=== PATIENT | female | born 1965 | race Caucasian/White ===

== ENCOUNTER 2016-08-05 15:14 | Emergency (ER) | payer MEDICAID ==
[~2016-08-05] VITALS: Ht 165.1 cm; Wt 147.0 kg
[~2016-08-05 15:14] MED LIST: NAPR500T3 PO
[2016-08-05] MEDS ORDERED: ALBUTEROL SULFATE 2.5 MG/3 ML NPPB ONE (15:30)
[2016-08-05] MEDS ORDERED: SODIUM CHLORIDE FLUSH 10ML SYR IVF ONE (15:30)
[2016-08-05] MEDS ORDERED: ALBUTEROL SULFATE 2.5 MG/3 ML ONE (15:34)
[2016-08-05 15:54] LABS: HCG UR OBC PASS
[2016-08-05 15:55] LABS: BLOOD UREA NITROGEN 17 mg/dL (7-18)
[2016-08-05] MEDS ORDERED: HYDROcodone/APAP 5/325 TABLET PO ONE (16:00)
[2016-08-05] MEDS ORDERED: KETOROLAC 30 MG/1 ML IM ONE (16:00)
[2016-08-05] MEDS ORDERED: KETOROLAC 30 MG/1 ML ONE (16:27)
[2016-08-05] MEDS ORDERED: HYDROcodone/APAP 5/325 TABLET ONE (16:27)
[2016-08-05 16:30] VITALS: BP 146/75
== END 2016-08-05 16:57 | disposition home or self-care (01) ==
LOC: ED 16:51
DX: J45.909 Unspecified asthma, uncomplicated (principal); M54.41 Lumbago with sciatica, right side
CPT/HCPCS: 36415; 71010; 80048; 81001; 81025; 82040; 85025; 87086; 94640; 96372; 99285; J1885; J7613

== ENCOUNTER 2016-08-25 00:14 | Emergency (ER) | payer MEDICAID ==
[~2016-08-25] VITALS: Ht 165.1 cm; Wt 147.2 kg
[2016-08-25 00:22] VITALS: BP 140/84
== END 2016-08-25 01:21 | disposition home or self-care (01) ==
LOC: ED 00:51
DX: K08.89 Other specified disorders of teeth and supporting structures (principal); J45.909 Unspecified asthma, uncomplicated
CPT/HCPCS: 64400

== ENCOUNTER 2016-10-10 16:42 | Emergency (ER) | payer MEDICAID ==
[~2016-10-10] VITALS: Ht 165.1 cm; Wt 150.8 kg
[2016-10-10 16:53] VITALS: BP 173/87
[2016-10-10] MEDS ORDERED: HYDROcodone/APAP 5/325 TABLET ONE (17:20)
[2016-10-10] MEDS ORDERED: KETOROLAC 30 MG/1 ML ONE (17:20)
[2016-10-10] MEDS ORDERED: CYCLOBENZAPRINE 10 MG TABLET ONE (17:22)
[2016-10-10] MEDS ORDERED: HYDROcodone/APAP 5/325 TABLET PO ONE (17:30)
[2016-10-10] MEDS ORDERED: CHOL400C PO (17:30)
[2016-10-10] MEDS ORDERED: KETOROLAC 30 MG/1 ML IM ONE (17:30)
[2016-10-10] MEDS ORDERED: CYCLOBENZAPRINE 10 MG TABLET PO ONE (17:30)
== END 2016-10-10 17:59 | disposition home or self-care (01) ==
LOC: ED 17:53
DX: G89.29 Other chronic pain (principal); M54.5 Low back pain
CPT/HCPCS: 96372; 99283; J1885

== ENCOUNTER 2016-11-08 20:45 | Emergency (ER) | payer MEDICAID ==
[~2016-11-08] VITALS: Ht 165.1 cm; Wt 151.8 kg
[~2016-11-08 20:45] MED LIST changes: +CHOL400C PO
[2016-11-08 22:55] LABS: HEMATOCRIT 41.1 % (34.6-47.8); HEMOGLOBIN 13.3 g/dL (11.7-16.4); WHITE BLOOD COUNT 6.8 x10^3/uL (3.4-10)
[2016-11-08 23:03] VITALS: BP 134/63
[2016-11-08 23:07] LABS: ASPARTATE AMINO TRANSFERASE 22 U/L (15-37); BLOOD UREA NITROGEN 18 mg/dL (7-18)
== END 2016-11-09 00:18 | disposition home or self-care (01) ==
LOC: ED 23:45
DX: R60.0 Localized edema (principal); J45.909 Unspecified asthma, uncomplicated; F17.200 Nicotine dependence, unspecified, uncomplicated
CPT/HCPCS: 36415; 80053; 85025; 93970; 99285

== ENCOUNTER 2017-02-13 08:51 | Emergency (ER) | payer MEDICAID ==
[~2017-02-13] VITALS: Ht 165.1 cm; Wt 154.5 kg
[~2017-02-13 08:51] MED LIST changes: -NAPR500T3 PO; +NAPR500T4 PO
[2017-02-13 08:52] VITALS: BP 134/72
[2017-02-13] MEDS ORDERED: BUPIVACAINE/PF 0.5% ONE (09:02)
[2017-02-13] MEDS ORDERED: FLUORESCEIN OPHTHALMIC 1 MG STRIP ONE (09:02)
[2017-02-13] MEDS ORDERED: PROPARACAINE OPHTH 0.5%, 15ML ONE (09:04)
== END 2017-02-13 09:33 | disposition home or self-care (01) ==
LOC: ED 09:32
DX: H10.022 Other mucopurulent conjunctivitis, left eye (principal); J45.909 Unspecified asthma, uncomplicated
CPT/HCPCS: 99283

== ENCOUNTER 2017-02-28 17:17 | Emergency (ER) | payer MEDICAID ==
[~2017-02-28] VITALS: Ht 165.1 cm; Wt 155.0 kg
[2017-02-28 17:19] VITALS: BP 145/103
[2017-02-28] MEDS ORDERED: morphine SULFATE 10 MG/ML, 1ML ONE (17:48)
[2017-02-28] MEDS ORDERED: HEPARIN 5,000 UNITS/ML, 1ML ONE (17:48)
[2017-02-28] MEDS ORDERED: NS + 20MEQ KCL 1,000 ML IV ONE (17:49)
[2017-02-28] MEDS ORDERED: OXYcodone/APAP 10/325MG TABLET ONE (17:49)
== END 2017-02-28 17:59 | disposition home or self-care (01) ==
LOC: ED 17:30
DX: K08.89 Other specified disorders of teeth and supporting structures (principal); Z90.49 Acquired absence of other specified parts of digestive tract
CPT/HCPCS: 99283

== ENCOUNTER 2017-05-29 22:46 | Emergency (ER) | payer MEDICAID ==
[~2017-05-29] VITALS: Ht 165.1 cm; Wt 155.0 kg
[2017-05-29 22:51] VITALS: BP 147/88
== END 2017-05-30 02:09 | disposition left against medical advice (07) ==
LOC: ED 05-30 02:03
DX: R10.9 Unspecified abdominal pain (principal); Z53.21 Procedure and treatment not carried out due to patient leaving prior to being seen by health care provider

== ENCOUNTER 2017-08-02 15:33 | Emergency (ER) | payer MEDICAID, OTHER ==
[~2017-08-02] VITALS: Ht 165.1 cm; Wt 153.3 kg
[~2017-08-02 15:33] MED LIST changes: +NAPR-685 PO; -NAPR500T4 PO
[2017-08-02 15:40] VITALS: BP 147/102
[2017-08-02] MEDS ORDERED: CYCLOBENZAPRINE 10 MG TABLET PO ONE (16:30)
[2017-08-02] MEDS ORDERED: KETOROLAC 60 MG/2 ML IM ONE (16:30)
[2017-08-02] MEDS ORDERED: OXYcodone/APAP 10/325MG TABLET PO ONE (16:30)
[2017-08-02] MEDS ORDERED: OXYcodone/APAP 5/325MG TABLET ONE (16:33)
[2017-08-02] MEDS ORDERED: CYCLOBENZAPRINE 10 MG TABLET ONE (16:33)
[2017-08-02] MEDS ORDERED: KETOROLAC 30 MG/1 ML ONE (16:33)
== END 2017-08-02 16:44 | disposition home or self-care (01) ==
LOC: ED 16:09
DX: M54.41 Lumbago with sciatica, right side (principal); Z90.49 Acquired absence of other specified parts of digestive tract
CPT/HCPCS: 96372; 99283; J1885

== ENCOUNTER 2018-05-13 18:57 | Emergency (ER) | payer OTHER ==
[~2018-05-13] VITALS: Ht 165.1 cm; Wt 164.3 kg
[2018-05-13 19:33] LABS: BASOPHILS # (AUTO) 0.03 x10^3/uL (0-0.1); BASOPHILS % (AUTO) 0 % (0-1); EOSINOPHILS # (AUTO) 0.05 x10^3/uL (0-0.4); EOSINOPHILS % (AUTO) 1 % (1-7); LYMPHOCYTES # (AUTO) 2.38 x10^3/uL (1-3.4); LYMPHOCYTES % (AUTO) 37 % (22-44); MD NO; MEAN CORPUSCULAR HEMOGLOBIN 28.3 pg (27.0-34.8); MEAN CORPUSCULAR HGB CONC 33.1 g/dL (32.4-35.8); MEAN CORPUSCULAR VOLUME 85.4 fL (80-100); MONOCYTES # (AUTO) 0.37 x10^3/uL (0.2-0.8); MONOCYTES % (AUTO) 6 % (2-9); NEUTROPHILS # (AUTO) 3.64 x10^3/uL (1.8-6.8); NEUTROPHILS % (AUTO) 56 % (42-75); PLATELET COUNT 227 x10^3/uL (130-400); RED BLOOD COUNT 5.16 x10^6/uL (3.82-5.3)
[2018-05-13 19:40] LABS: ANION GAP 5 mmol/L (5-15); CALCIUM 8.3 mg/dL (8.5-10.1); CHLORIDE 104 mmol/L (98-107)
[2018-05-13 19:41] LABS: RAPID INFLUENZA A Negative (Negative); RAPID INFLUENZA B Negative (Negative)
[2018-05-13 19:45] LABS: TROPONIN I < 0.015 ng/mL (0.000-0.045)
--- NOTE | 2018-05-13 20:00 | NUR ---
TO ROOM FROM LOBBY. NAD.
[2018-05-13] MEDS ORDERED: ALBUTEROL/IPRATROPIUM 2.5MG/0.5MG, 3 ML ONE (20:59)
[2018-05-13] MEDS ORDERED: ALBUTEROL/IPRATROPIUM 2.5MG/0.5MG, 3 ML NPPB ONE (21:00)
[2018-05-13 21:13] VITALS: BP 159/68
--- NOTE | 2018-05-13 21:59 | NUR ---
Patient/Caregiver given discharge instructions and they have confirmed that they understand the instructions. Patient ambulatory with steady gait.
== END 2018-05-13 22:01 | disposition home or self-care (01) ==
LOC: ED 21:10
DX: J45.909 Unspecified asthma, uncomplicated (principal); F17.200 Nicotine dependence, unspecified, uncomplicated; M79.10 Myalgia, unspecified site; Z98.890 Other specified postprocedural states; Z90.89 Acquired absence of other organs
CPT/HCPCS: 36415; 71046; 80048; 84484; 85025; 87400; 93005; 94640; 99284; J7620

== ENCOUNTER 2018-11-04 19:32 | Emergency (ER) | payer OTHER ==
[~2018-11-04] VITALS: Ht 165.1 cm; Wt 160.0 kg
[2018-11-04 22:09] VITALS: BP 127/76
== END 2018-11-04 22:15 | disposition home or self-care (01) ==
LOC: ED 21:20
DX: R07.89 Other chest pain (principal); Z90.49 Acquired absence of other specified parts of digestive tract; Z87.891 Personal history of nicotine dependence; J45.909 Unspecified asthma, uncomplicated
CPT/HCPCS: 36415; 71045; 80053; 83690; 84484; 85025; 93005; 99284

== ENCOUNTER 2019-05-08 15:13 | Emergency (ER) | payer OTHER ==
[~2019-05-08] VITALS: Ht 162.6 cm; Wt 150.0 kg
[2019-05-08 15:18] VITALS: BP 136/78
[2019-05-08] MEDS ORDERED: LACTATED RINGERS 1,000 ML IVBOLUS ONE (16:00)
[2019-05-08] MEDS ORDERED: SODIUM CHLORIDE 0.9% 1,000ML IVBOLUS ONE (16:00)
--- NOTE | 2019-05-08 16:17 | NUR ---
PT HAD BARIATRIC SURGERY FRIDAY THE . IT GIVES HER A SENSATION OF HAVING THE WIND KNOCKED OUT OF HER WHEN SHE DRINKS WATER. PT HAS NOT BEEN ABLE TO GET ENOUGH LIQUIDS DOWN. IV FLUIDS INFUSING PER ORDERS
[2019-05-08 16:24] LABS: ALANINE AMINOTRANSFERASE 186 U/L (12-78); ALBUMIN 3.5 g/dL (3.4-5.0); ANION GAP 7 mmol/L (5-15); CALCIUM 9.1 mg/dL (8.5-10.1); CHLORIDE 105 mmol/L (98-107); CREATININE 0.83 mg/dL (0.55-1.02)
[2019-05-08 16:26] LABS: ALKALINE PHOSPHATASE 146 U/L (45-117); BILIRUBIN,TOTAL 0.8 mg/dL (0.2-1.0); TOTAL PROTEIN 7.5 g/dL (6.4-8.2)
== END 2019-05-08 17:22 | disposition home or self-care (01) ==
LOC: ED 15:52
DX: E86.0 Dehydration (principal); R94.5 Abnormal results of liver function studies; J45.909 Unspecified asthma, uncomplicated; Z90.89 Acquired absence of other organs; F17.200 Nicotine dependence, unspecified, uncomplicated
CPT/HCPCS: 36415; 80053; 96360; 99283; J7030; J7120

== ENCOUNTER 2020-02-06 13:26 | Emergency (ER) | payer OTHER ==
[~2020-02-06] VITALS: Ht 165.1 cm; Wt 118.7 kg
--- NOTE | 2020-02-06 14:09 | NUR ---
DIZZY, RT UPPER ABD PAIN, DIARRHEA, BURNING LIKE HEART BURN. GASTRIC SLEEVE IN APRIL, DR GRAFF WANTS A HIDA SCAN. PA IN ROOM. PT IN BED IN GOWN WITH CONT SPO2, BPQ 30 MIN SIDE RAILS UPX2, CALL LIGHT IN REACH
[2020-02-06] MEDS ORDERED: OMEP20CA20 PO (14:11)
[2020-02-06] MEDS ORDERED: MORPHINE SULFATE 4 MG/ML, 1ML ONE ×2 (14:14→16:31)
[2020-02-06] MEDS ORDERED: ONDANSETRON 2MG/ML, 2ML ONE (14:14)
[2020-02-06] MEDS: MORPHINE SULFATE 4 MG/ML, 1ML IVPush PRN ×2 (14:24→16:48)
[2020-02-06 14:29] LABS: BASOPHILS % (AUTO) 1 % (0-1); EOSINOPHILS % (AUTO) 1 % (1-7); LYMPHOCYTES % (AUTO) 32 % (22-44); MEAN CORPUSCULAR HGB CONC 32.6 g/dL (32.4-35.8); MEAN PLATELET VOLUME 8.2 fL (7.4-10.4); MONOCYTES % (AUTO) 6 % (2-9); NEUTROPHILS % (AUTO) 61 % (42-75); PLATELET COUNT 223 x10^3/uL (130-400); RED BLOOD COUNT 5.29 x10^6/uL (3.82-5.3); RED CELL DISTRIBUTION WIDTH 12.7 % (9.6-15.2)
[2020-02-06] MEDS ORDERED: ONDANSETRON 2MG/ML, 2ML IVPush ONE (14:30)
[2020-02-06] MEDS ORDERED: SODIUM CHLORIDE 0.9% 1,000ML IVBOLUS ONE (14:30)
[2020-02-06] MEDS ORDERED: SODIUM CHLORIDE FLUSH 10ML SYR IVF ONE (14:30)
[2020-02-06 14:31] LABS: MD NO
[2020-02-06 14:35] LABS: ALANINE AMINOTRANSFERASE 52 U/L (12-78); ALBUMIN 3.9 g/dL (3.4-5.0); ANION GAP 6 mmol/L (5-15); CALCIUM 8.9 mg/dL (8.5-10.1); CHLORIDE 106 mmol/L (98-107); CREATININE 0.81 mg/dL (0.55-1.02)
[2020-02-06 14:38] LABS: ALKALINE PHOSPHATASE 85 U/L (45-117); BILIRUBIN,TOTAL 0.4 mg/dL (0.2-1.0); TOTAL PROTEIN 7.6 g/dL (6.4-8.2)
[2020-02-06 16:38] LABS: MICROSCOPIC NOT IND
[2020-02-06 17:01] VITALS: BP 124/62
== END 2020-02-06 17:03 | disposition home or self-care (01) ==
LOC: ED 14:53
DX: R10.11 Right upper quadrant pain (principal); R19.7 Diarrhea, unspecified; K21.9 Gastro-esophageal reflux disease without esophagitis; J45.909 Unspecified asthma, uncomplicated; Z87.19 Personal history of other diseases of the digestive system; Z90.49 Acquired absence of other specified parts of digestive tract
CPT/HCPCS: 36415; 76700; 80053; 81003; 83690; 85025; 93005; 96361; 96374; 96375; 96376; 99285; J2270; J2405; J7030

== ENCOUNTER → 2020-03-10 | Outpatient (CLI) | payer OTHER ==
[~2020-03-10] MED LIST changes: +OMEP20CA20 PO
== END | disposition home or self-care (01) ==
LOC: RAD 11:46
PROVIDERS: ATTEND Clinical Nurse Specialist
DX: Z09 Encounter for follow-up examination after completed treatment for conditions other than malignant neoplasm (principal); R10.11 Right upper quadrant pain; E66.01 Morbid (severe) obesity due to excess calories; K82.8 Other specified diseases of gallbladder
CPT/HCPCS: 78227; A9537

== ENCOUNTER 2020-03-19 15:55 | Inpatient (IN) | payer OTHER ==
[~2020-03-19] VITALS: Ht 160 cm; Wt 121.7 kg
--- NOTE | 2020-03-19 16:38 | NUR ---
Pt to room at this time.
[2020-03-19 17:07] LABS: BASOPHILS % (AUTO) 1 % (0-1); EOSINOPHILS % (AUTO) 1 % (1-7); LYMPHOCYTES % (AUTO) 38 % (22-44); MEAN CORPUSCULAR HEMOGLOBIN 27.7 pg (27.0-34.8); MEAN CORPUSCULAR HGB CONC 33.2 g/dL (32.4-35.8); MEAN PLATELET VOLUME 8.9 fL (7.4-10.4); MONOCYTES % (AUTO) 5 % (2-9); NEUTROPHILS % (AUTO) 56 % (42-75); PLATELET COUNT 239 x10^3/uL (130-400); RED BLOOD COUNT 5.52 x10^6/uL (3.82-5.3)
[2020-03-19 17:09] LABS: ALANINE AMINOTRANSFERASE 34 U/L (12-78); ALBUMIN 4.2 g/dL (3.4-5.0); ANION GAP 4 mmol/L (5-15); CALCIUM 9.5 mg/dL (8.5-10.1); CHLORIDE 106 mmol/L (98-107); CREATININE 0.94 mg/dL (0.55-1.02); MD NO
[2020-03-19 17:11] LABS: ALKALINE PHOSPHATASE 86 U/L (45-117); BILIRUBIN,TOTAL 0.5 mg/dL (0.2-1.0); TOTAL PROTEIN 8.2 g/dL (6.4-8.2)
--- NOTE | 2020-03-19 17:19 | NUR ---
Pt states she had a hida-scan and it was determined that she "needs her gallbladder out but no surgery is scheduled. Pt was told to report to the ER if pain or symptoms got worse. Pt reports increasing pain and new onset nausea.
[2020-03-19] MEDS ORDERED: SODIUM CHLORIDE 0.9% 1,000ML IVBOLUS ONE (18:00)
[2020-03-19] MEDS ORDERED: ONDANSETRON 2MG/ML, 2ML IVPush ONE (18:00)
[2020-03-19] MEDS ORDERED: MORPHINE SULFATE 4 MG/ML, 1ML IVPush PRN (18:00)
[2020-03-19] MEDS ORDERED: ONDANSETRON 2MG/ML, 2ML ONE (18:04)
[2020-03-19] MEDS ORDERED: MORPHINE SULFATE 4 MG/ML, 1ML ONE (18:04)
[2020-03-19 18:11] LABS: MICROSCOPIC NOT IND
--- NOTE | 2020-03-19 18:24 | NUR ---
Working to obtain IV access.
--- NOTE | 2020-03-19 18:56 | NUR ---
Bedside report to Roman Pavon RN. Pt condition unchanged.
[2020-03-19] MEDS ORDERED: morphine SULFATE 10 MG/ML, 1ML IVPush PRN (19:30)
[2020-03-19] MEDS ORDERED: BISACODYL 10 MG SUPP PR PRN (19:30)
--- NOTE | 2020-03-19 20:09 | NUR ---
PT GIVEN CLEAR SOUP VITALS NOTED RTG 472 REPORT GIVEN DONNELL 2010
[2020-03-19] MEDS: SODIUM CHLORIDE 0.9% 1,000 ML IV SCH (21:10)
[2020-03-20 01:16] VITALS: BP 122/48
[2020-03-20] MEDS ORDERED: ACETAMINOPHEN 325 MG TABLET ONE (02:27)
[2020-03-20] MEDS ORDERED: ACETAMINOPHEN 325 MG TABLET PO PRN (02:30)
[2020-03-20 06:00] LABS: BASOPHILS % (AUTO) 1 % (0-1); EOSINOPHILS % (AUTO) 1 % (1-7); LYMPHOCYTES % (AUTO) 31 % (22-44); MD NO; MEAN CORPUSCULAR HEMOGLOBIN 27.3 pg (27.0-34.8); MEAN CORPUSCULAR HGB CONC 32.7 g/dL (32.4-35.8); MEAN PLATELET VOLUME 8.6 fL (7.4-10.4); MONOCYTES % (AUTO) 6 % (2-9); NEUTROPHILS % (AUTO) 60 % (42-75); PLATELET COUNT 203 x10^3/uL (130-400); RED BLOOD COUNT 5.01 x10^6/uL (3.82-5.3); RED CELL DISTRIBUTION WIDTH 13.2 % (9.6-15.2)
[2020-03-20 06:12] LABS: ANION GAP 2 mmol/L (5-15); CALCIUM 8.5 mg/dL (8.5-10.1); CHLORIDE 109 mmol/L (98-107); CREATININE 0.78 mg/dL (0.55-1.02)
[2020-03-20 07:19] VITALS: BP 92/62
[2020-03-20] MEDS: HEPARIN 5,000 UNITS/ML, 1ML SQ SCH ×3 (08:46→23:12)
[2020-03-20] MEDS: ACETAMINOPHEN 325 MG TABLET PO PRN ×3 (08:51→23:43)
[2020-03-20] MEDS ORDERED: morphine SULFATE 10 MG/ML, 1ML IVPush PRN (10:30)
[2020-03-20] MEDS: SODIUM CHLORIDE 0.9% 1,000 ML IV SCH (10:50)
[2020-03-20 13:32] VITALS: BP 113/50
[2020-03-20] MEDS: OXYcodone IR 5MG TABLET PO PRN ×2 (14:00→20:09)
[2020-03-20 18:49] VITALS: BP 132/78
[2020-03-20] MEDS ORDERED: OMEPRAZOLE 20 MG CAPSULE.DR ONE (19:57)
[2020-03-20] MEDS: OMEPRAZOLE 20 MG CAPSULE.DR PO SCH (20:00)
[2020-03-20] MEDS: ONDANSETRON 2MG/ML, 2ML IVPush PRN (20:09)
[2020-03-21] MEDS: SODIUM CHLORIDE 0.9% 1,000 ML IV SCH ×2 (02:51→15:59)
[2020-03-21 02:54] VITALS: BP 107/60
[2020-03-21] MEDS: OMEPRAZOLE 20 MG CAPSULE.DR PO SCH (05:23)
[2020-03-21] MEDS: ACETAMINOPHEN 325 MG TABLET PO PRN (05:24)
[2020-03-21] MEDS ORDERED: OMEPRAZOLE 20 MG CAPSULE.DR PO SCH (06:00)
[2020-03-21 07:29] VITALS: BP 93/40
[2020-03-21] MEDS: LACTOBACILLUS CHEW TABLET PO SCH ×3 (09:19→20:47)
[2020-03-21] MEDS: HEPARIN 5,000 UNITS/ML, 1ML SQ SCH ×2 (09:19→16:00)
[2020-03-21] MEDS: ONDANSETRON 2MG/ML, 2ML IVPush PRN (10:23)
[2020-03-21] MEDS: OXYcodone IR 5MG TABLET PO PRN (10:24)
[2020-03-21 13:33] VITALS: BP 100/67
[2020-03-21] MEDS ORDERED: BUPIVACAINE/PF 0.5% ONE (13:36)
[2020-03-21] MEDS ORDERED: EPINEPHRINE 1 MG/ML, 1ML ONE (13:36)
[2020-03-21] MEDS ORDERED: CHLORHEXIDINE 15 ML UDC ONE (14:43)
[2020-03-21] MEDS ORDERED: CHLORHEXIDINE 15 ML UDC MM ONE (15:00)
[2020-03-21] MEDS ORDERED: hydrALAzine 20 MG/ML, 1ML IV PRN (15:30)
[2020-03-21] MEDS ORDERED: HALOPERIDOL 5 MG/ML IV PRN (15:30)
[2020-03-21] MEDS ORDERED: HYDROmorphone 1 MG/ML, 1ML INJ IVPush PRN (15:30)
[2020-03-21] MEDS ORDERED: FENTANYL PF 100 MCG/2ML IV PRN (15:30)
[2020-03-21] MEDS ORDERED: PROMETHAZINE 25 MG/ML, 1ML IVPush PRN (15:30)
[2020-03-21] MEDS ORDERED: OXYcodone 5 MG/5 ML ORAL.SOL UDC PO PRN (15:30)
[2020-03-21] MEDS ORDERED: DIPHENHYDRAMINE 50 MG/ML, 1ML IVPush PRN (15:30)
[2020-03-21] MEDS ORDERED: LABETALOL 5MG/ML, 20ML IV PRN (15:30)
[2020-03-21] MEDS ORDERED: MEPERIDINE/PF 25MG/0.5ML IVPush PRN (15:30)
[2020-03-21] MEDS ORDERED: MIDAZOLAM 1 MG/ML, 2ML ONE (15:50)
[2020-03-21] MEDS ORDERED: FENTANYL PF 250 MCG/5ML ONE (15:50)
[2020-03-21] MEDS ORDERED: CEFOTETAN 2 GM ONE (16:18)
[2020-03-21] MEDS ORDERED: GLYCOPYRROLATE 0.2MG/1ML, 5ML ONE (16:48)
[2020-03-21] MEDS ORDERED: SUGAMMADEX 200 MG/2 ML IVPush ONE ×2 (16:48)
[2020-03-21] MEDS ORDERED: CEFAZOLIN 1,000 MG ONE (16:48)
[2020-03-21] MEDS ORDERED: ROCURONIUM 10MG/ML,5ML ONE (16:48)
[2020-03-21] MEDS ORDERED: SUCCINYLCHOLINE 20 MG/ML, 10ML ONE (16:48)
[2020-03-21] MEDS ORDERED: NEOSTIGMINE 1 MG/ML, 10ML ONE (16:48)
[2020-03-21] MEDS ORDERED: PROPOFOL 10 MG/ML, 20ML ONE (16:48)
[2020-03-21] MEDS ORDERED: ONDANSETRON 2MG/ML, 2ML ONE (16:48)
[2020-03-21] MEDS ORDERED: LACTATED RINGERS 1,000 ML IV SCH (16:56)
[2020-03-21] MEDS ORDERED: ONDANSETRON 2MG/ML, 2ML IVPush PRN (17:00)
[2020-03-21] MEDS ORDERED: HYDROcodone/APAP 5/325 TABLET PO PRN (17:00)
[2020-03-21] MEDS ORDERED: KETOROLAC 30 MG/1 ML IVPush PRN (17:00)
[2020-03-21] MEDS ORDERED: morphine SULFATE 10 MG/ML, 1ML IVPush PRN (17:00)
[2020-03-21] MEDS ORDERED: FENTANYL PF 100 MCG/2ML ONE (17:02)
[2020-03-21] MEDS ORDERED: PROMETHAZINE 25 MG/ML, 1ML ONE (17:05)
[2020-03-21] MEDS ORDERED: ACETAMINOPHEN 650 MG/20.3 ML UDC ONE (17:25)
[2020-03-21] MEDS ORDERED: OXYcodone 5 MG/5 ML ORAL.SOL UDC ONE (17:25)
[2020-03-21 18:34] VITALS: BP 133/75
[2020-03-21] MEDS: LACTATED RINGERS 1,000 ML IV SCH (20:46)
[2020-03-22 00:10] VITALS: BP 102/55
[2020-03-22 03:59] VITALS: BP 111/67
[2020-03-22] MEDS: LACTATED RINGERS 1,000 ML IV SCH ×2 (04:10→11:59)
[2020-03-22] MEDS: OXYcodone IR 5MG TABLET PO PRN ×2 (04:11→07:59)
[2020-03-22] MEDS: ONDANSETRON 2MG/ML, 2ML IVPush PRN ×2 (04:11→12:04)
[2020-03-22] MEDS: SODIUM CHLORIDE 0.9% 1,000 ML IV SCH (04:15)
[2020-03-22] MEDS: OMEPRAZOLE 20 MG CAPSULE.DR PO SCH (06:47)
[2020-03-22 07:23] VITALS: BP 118/73
[2020-03-22] MEDS: ACETAMINOPHEN 325 MG TABLET PO PRN (07:59)
[2020-03-22] MEDS: HEPARIN 5,000 UNITS/ML, 1ML SQ SCH ×2 (08:00)
[2020-03-22] MEDS: LACTOBACILLUS CHEW TABLET PO SCH (08:00)
[2020-03-22] MEDS ORDERED: ONDA4TAB7 PO (11:14)
[2020-03-22] MEDS ORDERED: HYDR-3237 PO (11:14)
[2020-03-22 12:43] VITALS: BP 130/76
== END 2020-03-22 14:20 | disposition home or self-care (01) | DRG 418 ==
LOC: ED 18:23 → EDIP 18:26 → 4NE 20:40 → DCLOUNGE 03-22 14:08
PROVIDERS: ADMIT Family Medicine; ATTEND Internal Medicine
PROC: 0FT44ZZ Resection of Gallbladder, Percutaneous Endoscopic Approach (ICD-10-PCS; principal; 2020-03-21 16:30)
DX: K82.8 Other specified diseases of gallbladder (principal); K81.0 Acute cholecystitis; Z68.42 Body mass index [BMI] 45.0-49.9, adult; E66.01 Morbid (severe) obesity due to excess calories; K21.9 Gastro-esophageal reflux disease without esophagitis; K76.0 Fatty (change of) liver, not elsewhere classified; F17.200 Nicotine dependence, unspecified, uncomplicated; J45.909 Unspecified asthma, uncomplicated; Z98.84 Bariatric surgery status; Z20.828 Contact with and (suspected) exposure to other viral communicable diseases
CPT/HCPCS: 36415; S0020; 76700; 80048; 80053; 81003; 83690; 85025; 87635; 88304; 93005; C1729; G0378; J0171; J0690; J1885; J2250; J2405; J2550; J2704; J2710; J3010; J0330; J2270; J7030; J7120